=== PATIENT | male | born 1960 | race Hispanic/Latino ===

== ENCOUNTER 2019-04-22 19:54 | Emergency (ER) | payer OTHER ==
[2019-04-22 20:50] LABS: CREATINE KINASE, TOTAL 141 U/L (21-232); MYOGLOBIN 56 ng/mL (10-92)
[2019-04-22 23:57] LABS: EOSINOPHILS % (AUTO) 1.8 % (0.0-8.0); HEMATOCRIT 42.6 % (42-54); LYMPHOCYTES % (AUTO) 29.7 % (21.0-51.0); MEAN CORPUSCULAR HEMOGLOBIN 32.2 pg (27.0-33.0); MEAN CORPUSCULAR VOLUME 94.8 fL (79-99); MONOCYTES % (AUTO) 2.9 % (3.0-13.0); NEUTROPHILS % (AUTO) 65.6 % (40.0-77.0); NUCLEATED RED BLOOD CELLS 0.1 % (0.0-0.19); PLATELET COUNT (AUTO) 170 K/uL (130-400); RED CELL DISTRIBUTION WIDTH 13.4 % (11.0-15.5); WHITE BLOOD COUNT (AUTO) 7.5 K/uL (4.8-10.8)
[2019-04-23 00:04] LABS: ALBUMIN 3.8 g/dL (3.5-5.0); BILIRUBIN,TOTAL 0.7 mg/dL (0.2-1.0); CREATININE 1.1 mg/dL (0.5-1.5); POTASSIUM 4.1 mmol/L (3.5-5.1); TOTAL PROTEIN, SERUM 7.4 g/dL (6.0-8.3)
== END 2019-04-23 00:56 | disposition home or self-care (01) ==
LOC: EDH 19:54
DX: R07.2 Precordial pain (principal); R09.89 Other specified symptoms and signs involving the circulatory and respiratory systems; R05 Cough
CPT/HCPCS: 36415; 71046; 80053; 82550; 83690; 83874; 84484; 85025; 85378; 93005

== ENCOUNTER → 2019-05-13 | Outpatient (CLI) | payer OTHER ==
[~2019-05-13] VITALS: Ht 167.6 cm; Wt 90.7 kg
[~2019-05-13] MED LIST: REGADENOSON 0.4 MG/5 ML PF SYG IVP SCH
== END | disposition home or self-care (01) ==
LOC: SHCH 09:18
PROVIDERS: ATTEND Internal Medicine Cardiovascular Disease
DX: R07.9 Chest pain, unspecified (principal)
CPT/HCPCS: 78452; 93017; 96374; A9500 ×2; J2785

== ENCOUNTER 2019-05-15 08:03 | Day surgery (SDC) | payer OTHER ==
[2019-05-14 14:50] VITALS: BP 148/76
[2019-05-14 15:35] LABS: BASOPHILS % (AUTO) 0.3 % (0.0-5.0); EOSINOPHILS % (AUTO) 1.3 % (0.0-8.0); HEMATOCRIT 44.5 % (42-54); LYMPHOCYTES % (AUTO) 30.7 % (21.0-51.0); MEAN CORPUSCULAR HEMOGLOBIN 31.9 pg (27.0-33.0); MEAN CORPUSCULAR HGB CONC 33.6 g/dL (32.0-36.0); MEAN CORPUSCULAR VOLUME 94.9 fL (79-99); MONOCYTES % (AUTO) 5.6 % (3.0-13.0); NEUTROPHILS % (AUTO) 62.1 % (40.0-77.0); PLATELET COUNT (AUTO) 175 K/uL (130-400); RED BLOOD CELL COUNT(AUTO) 4.69 MIL/uL (4.50-6.20); RED CELL DISTRIBUTION WIDTH 13.6 % (11.0-15.5); WHITE BLOOD COUNT (AUTO) 7.3 K/uL (4.8-10.8)
[2019-05-14 15:53] LABS: POTASSIUM 4.2 mmol/L (3.5-5.1)
[2019-05-14 15:56] LABS: INR 0.98 (0.85-1.15); PARTIAL THROMBOPLASTIN TIME 29.9 SEC (26.3-35.5); PROTHROMBIN TIME 10.3 SEC (9.6-11.6)
[2019-05-14 16:30] LABS: APPEARANCE,URINE Clear (CLEAR); BILIRUBIN,URINE Negative (NEGATIVE); COLOR,URINE Yellow (YELLOW); GLUCOSE, URINE (UA) Negative (NEGATIVE); KETONES,URINE Negative (NEGATIVE); LEUKOCYTE ESTERASE ,URINE Trace (NEGATIVE); NITRATE,URINE Negative (NEGATIVE); OCCULT BLOOD,URINE Negative (NEGATIVE); PH,URINE 7.5 (5.0-8.0); PROTEIN,URINE Negative (NEGATIVE)
[2019-05-14 17:02] LABS: BACTERIA,URINE Rare /HPF (None Seen); RBC,URINE 0-1 /HPF (0-1); SQUAMOUS EPITHELIAL CELL,UR None Seen /HPF (0-2); WBC,URINE 0-1 /HPF (0-1)
[2019-05-15] VITALS (11 sets, daily range): BP systolic 127–145; BP diastolic 58–80
[~2019-05-15] VITALS: Ht 170.2 cm; Wt 89.9 kg
[~2019-05-15 08:03] MED LIST changes: -REGADENOSON 0.4 MG/5 ML PF SYG IVP SCH; +SODIUM CHLORIDE 0.9% 500ML 500 ML IV SCH
--- NOTE | 2019-05-15 08:55 | NUR ---
PATIENT ARRIVED ON THE UNIT, VITALS SIGNS TAKEN AND RESPIRATIONS UNLABORED. PATIENT AAOX3, NO COMPLAINTS OF PAIN AT THIS TIME. PATIENT EXPLAINED HEART CATH PROCEDURE AND VERBALIZED UNDERSTANDING.
[2019-05-15] MEDS ORDERED: SODIUM CHLORIDE 0.9% 1000ML 1,000 ML IV ONE (10:59)
[2019-05-15] MEDS ORDERED: LIDOCAINE HCL 2% 20ML ONE (11:26)
[2019-05-15] MEDS ORDERED: IOHEXOL 350 MG/ML 100ML INFUS..BTL IV ONE (11:26)
--- NOTE | 2019-05-15 11:30 | NUR ---
TRANSFERRED PATIENT TAKEN TO CAREER COACH VIA BED BY CARMEN DORADO.
--- NOTE | 2019-05-15 12:40 | NUR ---
FEMORAL SITE: RIGHT GROIN AREA WITH DRESSING IN PLACE. DRESSING IS DRY AND INTACT, NO REDNESS/SWELLING NOTED. AREA IS SOFT AND NONTENDER.
--- NOTE | 2019-05-15 12:40 | NUR ---
PATIENT RETURNED TO UNIT: PATIENT BROUGHT BACK FROM FINGERPRINT TECHNICIAN BY CARMEN GOULD. PATIENT AAOX3, RESPIRATIONS UNLABORED, NO C/O PAIN AT THIS TIME. FEMORAL SITE WITH DRESSING IN PLACE, DRY AND INTACT. AREA IS SOFT AND NONTENDER. PEDAL PULSES PRESENT BILATERALLY.
--- NOTE | 2019-05-15 12:55 | NUR ---
FEMORAL SITE: RIGHT GROIN WITH DRESSING IN PLACE. DRESSING IS DRY AND INTACT. NO REDNESS/SWELLING NOTED. AREA IS SOFT AND NONTENDER.
--- NOTE | 2019-05-15 13:10 | NUR ---
FEMORAL SITE: RIGHT GROIN WITH DRESSING IN PLACE. DRESSING IS DRY AND INTACT. NO REDNESS/SWELLING NOTED. AREA IS SOFT AND NONTENDER.
[2019-05-15 13:20] LABS: CHOLESTEROL 167 mg/dL (<200); HDL CHOLESTEROL 137 mg/dL (29-71); LDL DIRECT 104 mg/dL (0-99); TRIGLYCERIDES 79 mg/dL (30-200)
--- NOTE | 2019-05-15 13:25 | NUR ---
FEMORAL SITE: RIGHT GROIN WITH DRESSING IN PLACE. DRESSING IS DRY AND INTACT. NO REDNESS/SWELLING NOTED. AREA IS SOFT AND NONTENDER.
--- NOTE | 2019-05-15 13:30 | NUR ---
TYLENOL ORDER: PATIENT C/O HEADACHE, PAIN LEVEL 2 OUT OF 10. CALLED [facility] AND RECEIVED ORDER FOR TYLENOL 650MG PO X 1 DOSE
[2019-05-15] MEDS ORDERED: ACETAMINOPHEN 325 MG TAB ONE (13:41)
--- NOTE | 2019-05-15 13:55 | NUR ---
FEMORAL SITE: RIGHT GROIN WITH DRESSING IN PLACE. DRESSING IS DRY AND INTACT. NO REDNESS/SWELLING NOTED. AREA IS SOFT AND NONTENDER.
--- NOTE | 2019-05-15 14:25 | NUR ---
FEMORAL SITE: RIGHT GROIN WITH DRESSING IN PLACE. DRESSING IS DRY AND INTACT. NO REDNESS/SWELLING NOTED. AREA IS SOFT AND NONTENDER.
[2019-05-15] MEDS ORDERED: ACETAMINOPHEN 325 MG TAB PO ONE (15:20)
--- NOTE | 2019-05-15 16:40 | NUR ---
REPORT RECEIVED REPORT FROM CARMEN CALVERT. PT LYING INBED. INSTRUCTED ON IMPORTANCE OF NOT MOVING RIGHT LEG OR LIFTING HEAD. VERBALIZED UNDERSTANDING. SITE TO RIGHT GROIN SOFT TO TOUCH. NO BLEEDING OOZING NOTED.
--- NOTE | 2019-05-15 16:40 | NUR ---
HAND OFF NURSING REPORT GIVEN TO GARETT BOSS RN
--- NOTE | 2019-05-15 16:40 | NUR ---
HAND OFF REPORT GIVEN TO GARETT BOSS RN
--- NOTE | 2019-05-15 19:26 | NUR ---
DISCHARGE ORAL AND WRITTEN DISCHARGE INSTRUCTIONS GIVEN TO PT AND PTS . NO OTHER QUESTIONS AT THIS TIME. SITE TO RIGHT GROIN SOFT TO TOUCH.
--- NOTE | 2019-05-15 19:56 | NUR ---
DISCHARGE ORAL AND WRIITEN DISCHARGE INSTRUCTIONS GIVEN. SITE TO RIGHT GROIN SOFT TO TOUCH. DRSG DRY AND INTACT. NO BLEEDING, OOZING NOTED
== END 2019-05-15 19:57 | disposition home or self-care (01) ==
LOC: DAH 08:03
PROVIDERS: ATTEND Internal Medicine Cardiovascular Disease
DX: R94.39 Abnormal result of other cardiovascular function study (principal); R07.89 Other chest pain; E78.5 Hyperlipidemia, unspecified; E11.9 Type 2 diabetes mellitus without complications; F15.90 Other stimulant use, unspecified, uncomplicated; Z72.89 Other problems related to lifestyle; Z88.0 Allergy status to penicillin; Z98.890 Other specified postprocedural states; Z79.01 Long term (current) use of anticoagulants; Z82.49 Family history of ischemic heart disease and other diseases of the circulatory system; Z83.3 Family history of diabetes mellitus
CPT/HCPCS: 36415 ×2; 80048; 80061; 81001; 82948; 85025; 85610; 85730; 93005; 93458; A4606; C1894; J1644 ×2; J3490; J7030; Q9965; Q9967

== ENCOUNTER 2022-11-01 13:50 | Emergency (ER) | payer OTHER ==
[~2022-11-01] VITALS: Ht 165.1 cm; Wt 90.7 kg
[2022-11-01 13:58] VITALS: BP 132/97
[2022-11-01 14:55] LABS: APPEARANCE,URINE CLEAR (CLEAR); BILIRUBIN,URINE NEGATIVE (NEGATIVE); COLOR,URINE YELLOW (YELLOW); GLUCOSE, URINE (UA) 30 mg/dL (NEGATIVE); KETONES,URINE 40 mg/dL (NEGATIVE); LEUKOCYTE ESTERASE ,URINE NEGATIVE Leu/uL (NEGATIVE); NITRATE,URINE NEGATIVE (NEGATIVE); OCCULT BLOOD,URINE NEGATIVE (NEGATIVE); PH,URINE 5.5 (5.0-8.0); PROTEIN,URINE 30 mg/dL (NEGATIVE)
[2022-11-01 15:02] LABS: MUCUS,URINE FEW LPF (None Seen); RBC,URINE 0-1 /HPF (0-1)
[2022-11-01 15:09] LABS: BASOPHILS % (AUTO) 0.2 % (0.0-5.0); EOSINOPHILS % (AUTO) 1.5 % (0.0-8.0); LYMPHOCYTES % (AUTO) 24.6 % (21.0-51.0); MEAN CORPUSCULAR HEMOGLOBIN 31.9 pg (27.0-33.0); MEAN CORPUSCULAR HGB CONC 35.1 g/dL (32.0-36.0); MEAN CORPUSCULAR VOLUME 90.9 fL (79-99); MONOCYTES % (AUTO) 6.8 % (3.0-13.0); NEUTROPHILS % (AUTO) 66.6 % (40.0-77.0); PLATELET COUNT (AUTO) 203 K/uL (130-400); RED BLOOD CELL COUNT(AUTO) 4.95 MIL/uL (4.50-6.20); WHITE BLOOD COUNT (AUTO) 8.7 K/uL (4.8-10.8)
[2022-11-01 15:23] LABS: CREATININE 1.2 mg/dL (0.5-1.5); POTASSIUM 4.1 mmol/L (3.5-5.1)
[2022-11-01 15:28] LABS: ALBUMIN 4.1 g/dL (3.5-5.0); TOTAL PROTEIN, SERUM 8.5 g/dL (6.0-8.3)
[2022-11-01] MEDS ORDERED: MAG/ALUM/SIMETH 30 ML UDCUP PO ONE (15:30)
[2022-11-01] MEDS ORDERED: LIDOCAINE HCL 2% VISCOUS 15 ML UDCUP PO ONE (15:30)
[2022-11-01] MEDS ORDERED: SIME125C81 PO (16:44)
[2022-11-01] MEDS ORDERED: DICY20TA2 PO (16:44)
== END 2022-11-01 16:59 | disposition home or self-care (01) ==
LOC: EDH 13:50
DX: R14.1 Gas pain (principal); Z20.822 Contact with and (suspected) exposure to COVID-19; R10.9 Unspecified abdominal pain; I11.9 Hypertensive heart disease without heart failure; E11.9 Type 2 diabetes mellitus without complications; Z98.890 Other specified postprocedural states; Z88.0 Allergy status to penicillin
CPT/HCPCS: 99285; 71045; 87635; 84484; 80053; 83690; 85025; 81001; 36415; 93005; C9803